=== PATIENT | female | born 1965 | race Two or more races ===

== ENCOUNTER 2017-04-13 10:01 | Emergency (ER) | payer OTHER ==
[~2017-04-13] VITALS: Ht 170.2 cm; Wt 91.6 kg
[~2017-04-13 10:01] MED LIST: ACIDOPHILUS1 EAC1 PO; ALLEGRA ALLERG180 MG PO; AURALGAN EAR DR14 ML OT; CINTROID; FLONASE16 GM NS; GILTUSS TR TAB1 EACH PO; KETO10TA2 PO; LOTRISONE CREAM45 GM TP; MEDROL4 MG PO; OMEGA 3 FISH OI1 CAP; ORPH100T PO; SMZ-TMP DS 800-1 TAB PO; SYNTHROID100 MCG PO; SYNTHROID50 MCG PO; ZANTAC150 MG PO; ZITHROMAX TRI-500 MG PO; ZITHROMAX500 MG PO; ZYRTEC10 MG PO; [UNRECOGNIZED DRUG - OTHER]
== END 2017-04-13 15:14 | disposition home or self-care (01) ==
LOC: ER 10:01
DX: M54.2 Cervicalgia (principal)

== ENCOUNTER 2017-08-16 09:20 | Outpatient (CLI) | payer OTHER | END 2017-08-16 09:29 | disposition home or self-care (01) | LOC: MAMO-SONO 09:20 | DX: Z12.31 Encounter for screening mammogram for malignant neoplasm of breast (principal); N64.4 Mastodynia; K76.1 Chronic passive congestion of liver ==

== ENCOUNTER 2017-08-30 09:28 | Outpatient (CLI) | payer OTHER | END 2017-08-30 09:35 | disposition home or self-care (01) | LOC: MAMO-SONO 09:28 | DX: R92.8 Other abnormal and inconclusive findings on diagnostic imaging of breast (principal); N60.11 Diffuse cystic mastopathy of right breast ==

== ENCOUNTER → 2017-10-06 | Outpatient (CLI) | payer OTHER | END | disposition home or self-care (01) | LOC: MRI 09:15 | DX: K80.10 Calculus of gallbladder with chronic cholecystitis without obstruction (principal) | CPT/HCPCS: 74181 ==

== ENCOUNTER 2018-01-26 11:07 | Outpatient (CLI) | payer OTHER | END 2018-01-26 11:19 | disposition home or self-care (01) | LOC: NUCLEAR 11:07 | DX: M81.0 Age-related osteoporosis without current pathological fracture (principal) ==

== ENCOUNTER 2018-09-21 07:54 | Outpatient (CLI) | payer OTHER | END 2018-09-21 08:04 | disposition home or self-care (01) | LOC: SONOGRAMA 07:54 | DX: K80.20 Calculus of gallbladder without cholecystitis without obstruction (principal); K75.81 Nonalcoholic steatohepatitis (NASH) ==

== ENCOUNTER 2018-10-02 10:07 | Outpatient (CLI) | payer OTHER | END 2018-10-02 10:15 | disposition home or self-care (01) | LOC: MRI 10:07 | DX: K80.10 Calculus of gallbladder with chronic cholecystitis without obstruction (principal) | CPT/HCPCS: 74181 ==

== ENCOUNTER 2018-11-16 08:45 | Outpatient (CLI) | payer OTHER | END 2018-11-16 08:50 | disposition home or self-care (01) | LOC: MAMO-SONO 08:45 | DX: C80.1 Malignant (primary) neoplasm, unspecified (principal) ==

== ENCOUNTER 2018-12-19 06:10 | Day surgery (SDC) | payer OTHER ==
[~2018-12-19 06:10] MED LIST changes: +CRESTOR5 MG; +METOPROLOL ER-1 EACH; +[UNRECOGNIZED DRUG - OTHER]
== END 2018-12-19 14:35 | disposition home or self-care (01) ==
LOC: CIR.AMB 06:10
DX: K80.10 Calculus of gallbladder with chronic cholecystitis without obstruction (principal)

== ENCOUNTER 2019-01-04 08:26 | Emergency (ER) | payer OTHER ==
[~2019-01-04] VITALS: Ht 170.2 cm; Wt 93.4 kg
[2019-01-04] MEDS ORDERED: CRESTOR5 MG PO (08:44)
== END 2019-01-04 10:27 | disposition home or self-care (01) ==
LOC: ER 08:26
DX: T78.49XA Other allergy, initial encounter (principal); R21 Rash and other nonspecific skin eruption

== ENCOUNTER 2020-06-11 13:14 | Outpatient (CLI) | payer OTHER ==
[~2020-06-11 13:14] MED LIST changes: +CRESTOR5 MG PO
== END 2020-06-11 13:33 | disposition home or self-care (01) ==
LOC: SONOGRAMA 13:14 → MAMO-SONO 13:15 → SONOGRAMA 13:33
PROVIDERS: ATTEND Internal Medicine Endocrinology, Diabetes & Metabolism
DX: R07.89 Other chest pain (principal); E04.1 Nontoxic single thyroid nodule; R06.09 Other forms of dyspnea; J30.89 Other allergic rhinitis; J45.20 Mild intermittent asthma, uncomplicated

== ENCOUNTER 2020-09-09 10:26 | Outpatient (CLI) | payer OTHER | END 2020-09-09 15:17 | disposition home or self-care (01) | LOC: MAMO-SONO 10:26 | DX: C50.111 Malignant neoplasm of central portion of right female breast (principal); N63.11 Unspecified lump in the right breast, upper outer quadrant ==